=== PATIENT | male | born 1965 | race Caucasian/White ===

== ENCOUNTER 2018-09-25 22:17 | Emergency (ER) | payer SELFPAY ==
[~2018-09-25] VITALS: Ht 185.4 cm; Wt 111.0 kg
[2018-09-25 22:20] VITALS: BP 157/91; PULSE 61; RESP 22; Ht 185.4 cm; Wt 111.0 kg
== END 2018-09-26 01:48 | disposition left against medical advice (07) ==
LOC: E/R 22:17
DX: Z53.21 Procedure and treatment not carried out due to patient leaving prior to being seen by health care provider (principal)
CPT/HCPCS: 93005